=== PATIENT | male | born 1930 | race African-American/Black ===

== ENCOUNTER 2018-01-26 10:16 | Inpatient (IN) | payer OTHER ==
[2018-01-26] MEDS ORDERED: SODIUM CHLORIDE 1,000 ML IV SCH (10:30)
--- NOTE | 2018-01-26 10:31 | PDOC ---
Attending Attestation - Medical Decision Making 01/26/18 11:[address] Villa's office, she is with a patient, awaiting call back. <Sarah Thompson - Last Filed: 01/26/18 11:46> - Resident Resident Name: Jose A Craft - ED Attending Attestation I have performed the following: I have examined & evaluated the patient, The case was reviewed & discussed with the resident, I agree w/resident's findings & plan, Exceptions are as noted - HPI HPI: 01/26/18 10:31 88y M hx of dm, htn, hl glaucoma, ESRD (MWF) pafib (2012, off ac currently), GIB deu to diverticular dz (apr 2016), prostate ca s/p prostectomy 94, presents with AMS while at [facility] - per [facility] records, at 9:35, the patient was noted to have seizure like activity, was cyanotic, couldnt talk, bp at 180/65, HR 95 while on dialysis, BGM by dialysis center was 164, EMS was called, arrived at approx 10am, found the pt to be agitated, was given 5 of versed, per EMS, bp was hpertensive to >200sbp (per ems, he was agitated at this point), BGM 125 by EMS. Upon arrival pts bp was 182/77, HR approx 120, pt was confused, non responding appropriatelyto questions (not at his baseline, per he is typically AOx3), also seem to have mild weakness of his RUE and RLE. Code willett was initiated a few minutes after arrival (approx 10:25). blood work was obtrained and Pt was rushed to CT. Per the , the pt had an episode of vomiting last night, but otherwise did not have any complaints of headache,a bd pain, cp. per the who saw the pt around 8:30 and gave him some crackers at dialysis, he was at baseline. exam upon arival: GENERAL: The patient is lethargic/cnofused, does not respond to questions HEAD: Normocephalic, atraumatic. EYES: pupils 3mm and sluggish response on L eye, glaucoma, ptergium on R eye ENT: Normal voice, dry mucous membranes. NECK: Normal range of motion, supple LUNGS: Breath sounds equal, clear to auscultation bilaterally. No wheezes, no rhonchi, no rales. HEART: tachycardic ABDOMEN: Soft, nontender,No guarding, no rebound. . No CVA tenderness EXTREMITIES: Normal range of motion, no edema, graft on NEUROLOGICAL: withdraws to pain on LUE/LLE, minimal movement of RUE/RLE PSYCH: unabl eto asess SKIN: Warm, Dry, - Physicial Exam PE: 02/01/18 01:18 see above - Critical Care Time Total Critical Care Time: 45 Critical Care Statement: The care of this patient involved high complexity decision making to prevent further life threatening deterioration of the patient 's condition and/or to evaluate & treat vital organ system(s) failure or risk of failure. - Medical Decision Making 01/26/18 10:[address] Sepulveda ([phone]) - neurology management consultant - notes that relative containdication of age, seizure, was given versed will reassess to see i there is improvement and will get back to him 01/26/18 11:[address] is negative 01/26/18 11:26 Pts NIHSS is 4, seems there is an improvement from presentation. pt moving his R arm against gravity which is an improvement from arrival and even approx 10 minutes ago will defer TPA due to improving sypmtms, relative contraindication due to his age, initial seizure activity discussed with who understands our movement and is amenable to our plan 01/26/18 15:32 hx of htn, prostate ca (89 sp prostectom), hl, dm, esrd iliestomy s/p reversal pafib (2012) off AC currently recent GIB due to diverticular dz (04/2016) echo a few years ago was wnl cards: Dr. Murillo <Heber Dorsey - Last Filed: 02/01/18 01:18> Heart Score/ECG Review - ECG Impressions Comment:: 01/26/18 11:28 Twelve-lead EKG was performed and reviewed by me. There is normal sinus rhythm with a normal rate. Rate of 99 The axis is normal. qTC interval o [id number] NoPrior EKGs for comparison <Heber Dorsey - Last Filed: 02/01/18 01:18> NIH Stroke Scale - Last Known Well Date/Time & Onset Date Last Known Well: 01/26/18 Time Last Known Well: 09:35 - Initial Evaluation Level of consciousness: Alert Ask patient the month and their age: Answers one correctly Ask patient to open & close eyes; make fist and let go: Obeys both correctly Best gaze (horizontal eye movement): Normal Visual field testing: No visual field loss Facial paresis (Show teeth/raise eyebrows/close eyes tight): Normal symmetrical movement Motor Function: Left Arm: Normal Motor Function: Right Arm: Some effort against gravity Motor Function: Left Leg: Normal (extends leg 30 degrees for 5 seconds without drift) Motor Function: Right Leg: Normal (extends leg 30 degrees for 5 seconds without drift) Limb Ataxia: No ataxia Sensory(Use pinprick test arms,legs,trunk,face/side to side): Mild to moderate decrease in sensation Best language (Describe picture, name items, read sentences): No Aphasia Dysarthria (read several words): Normal articulation Extinction and Inattention: No abnormality - Total Score NIH Stroke Scale Score: 4 <Heber Dorsey - Last Filed: 02/01/18 01:18> tPA Exclusion Checklist 0-3hr - Time Elapsed Date last known well: 01/26/18 Time last known well: 09:35 Elaspsed time: 5 Day(s) and 15 Hour(s) and 43 Minutes - Thrombolytic Therapy Candidate Is the patient eligible for Thrombolytic Therapy?: No - Exclusion Criteria 0-3hr SBP greater than 185 or DBP greater than 110mmHg despite tx: Yes Recent IC/spinal surgery,head trauma or stroke w/in last 3mo: No Hx of previous IC hemorrhage, IC neoplasm, AVM or aneurysm: No Active internal bleeding: No Blding diathesis(low plt ct, inc PTT,INR>1.7 or use of NOAC): No Symptoms suggest subarachnoid hemorrhage: No CT demonstrates multilobar infarct(>1/3 cerebral hemiphere): No Arterial puncture at noncompressible site in previous 7 days: No Blood glucose concentration less than 50mg/dL (2.7mmol/L): No - Relative Exclusion Criteria 0-3h Life expectancy <1yr/severe co-morbid illness/[employer]NAGING [employer]SP[employer]ER on admit: No : No Patient/family refused: No Rapid improvement: Yes Stroke severity too mild: Yes Recent acute FL (w/in previous 3 months): No Seizure at onset with postictal residual neuro impairments: Yes Major surgery or serious trauma w/in previous 14 days: No Recent GI or hemorrhage (w/in previous 21 days): No - Ineligibility reason(s) Reasons No tPA given: See reason(s) noted above <Heber Dorsey - Last Filed: 02/01/18 01:18> Attestations - Attestations 01/26/18 11:46 Documentation prepared by Sarah Thompson, acting as medical biller for Heber Dorsey MD. <Sarah Thompson - Last Filed: 01/26/18 11:46>
[2018-01-26 11:05] LABS: BASO % 0.2 % (0-2.0); HEMATOCRIT 37.7 % (35.4-49); HEMOGLOBIN 12.5 GM/dL (11.7-16.9); INR 0.93 (0.83-1.09); MCH 33.6 pg (25.7-33.7); MCHC 33.2 g/dl (32.0-35.9); MEAN CELL VOLUME 101.2 fl (80-96); MONO % 6.4 % (3.8-10.2); NEUT % 71.4 % (42.8-82.8); PLATELET COUNT 205 K/MM3 (134-434); RBC 3.73 M/mm3 (4.00-5.60); RDW 17.1 % (11.9-15.9); WHITE BLOOD COUNT 8.4 K/mm3 (4.0-10.0)
[2018-01-26 11:06] LABS: ALBUMIN 3.2 g/dl (3.4-5.0); ALK PHOS 103 U/L (45-117); ANION GAP 15 MMOL/L (8-16); BILIRUBIN,TOTAL 0.7 mg/dL (0.2-1); BLOOD UREA NITROGEN 39 mg/dL (7-18); CALCIUM 8.7 mg/dL (8.5-10.1); CHLORIDE 96 mmol/L (98-107); CHOLESTEROL 129 mg/dL (50-200); CO2 25 mmol/L (21-32); GLUCOSE,RANDOM 212 mg/dL (74-106); HDL CHOLESTEROL 53 mg/dL (40-60); POTASSIUM 3.6 mmol/L (3.5-5.1); SGOT/AST 37 U/L (15-37); SGPT/ALT 45 U/L (13-61); SODIUM 136 mmol/L (136-145); TOT PROT 7.2 g/dl (6.4-8.2); TRIGLYCERIDES 137 mg/dL (0-150)
[2018-01-26] MEDS ORDERED: ASPIRIN 81 MG CHEWABLE TABLETS PO ONE (11:17)
[2018-01-26] MEDS ORDERED: ASPIRIN 81 MG CHEWABLE TABLETS ONE (11:23)
--- NOTE | 2018-01-26 12:02 | PDOC ---
History of Present Illness - General Chief Complaint: CVA/TIA Stated Complaint: ALTERED MENTAL STATUS Time Seen by Provider: 01/26/18 10:20 History Source: Patient, Spouse Exam Limitations: Clinical Condition - History of Present Illness Initial Comments: 88 y/o male presenting to [facility] ER via ALS ambulance from [facility] with an altered mental status. Transfer paperwork from [facility], At 9:35 AM patient noted a seizure like activity, cyanosed, cant talk, BP 180/65 P-95 while on hemodialysis. Blood glucose 164. Clinical Account Manager reports pt was found to be agitated and/or combative. 5mg Versed was administered. Found to be hypertensive to greater than 200 systolic. Believed to have received approx. 1 hour of dialysis. On arrival in the ED, the pt was found to be alert but confused; he did not verbalize a chief complaint. was present at bedside in ER. She reports she was at [facility] but did not witness the episode. Pt was alert and oriented x4 this morning. He walked down the stairs at home with obvious change in ambulation. She denies h/o of similar episodes. PCP: Unknown at [facility] Agriculture Scientist: Dr. Young Medical Hx: Anemia in CKD ESRD on HD (M, W, F) T2DM, insulin dependent Inflammatory Liver Disease, Unspecified Past History - Past Medical History Allergies/Adverse Reactions: Allergies Allergy/AdvReac Type Severity Reaction Status Date / Time Penicillins Allergy Verified 01/26/18 10:46 Home Medications: Ambulatory Orders Amlodipine Besylate [Norvasc -] 10 mg PO DAILY 01/26/18 B Complex W-C No.20/Folic Acid [[place] Caps Softgel] 1 mg PO DAILY 01/26/18 Docusate Sodium 300 mg PO DAILY 01/26/18 Insulin (Novolog) [Novolog Vial] 4 units SQ TID PRN 01/26/18 Latanoprost 0.005% Eye Drops [Xalatan 0.005% Eye Drops -] 1 drop OP ASDIR Metoprolol Succinate [Toprol Xl] 12.5 mg PO ASDIR 01/26/18 Sevelamer Carbonate 1,600 mg PO TID 01/26/18 Anemia: Yes (iron deficiency) COPD: No Diabetes: Yes Disorders: Yes (ESRD) HTN: Yes Hypercholesterolemia: Yes Seizures: Yes (hyperparathyroidism) - Suicide/Smoking/Psychosocial Hx Smoking History: Unknown if ever smoked Have you smoked in the past 12 months: No Information on smoking cessation initiated: No Hx Alcohol Use: No Drug/Substance Use Hx: No Substance Use Type: None Review of Systems - Review of Systems Able to Perform ROS?: No Comments:: Pt altered on arrival. Unable to answer questions. *Physical Exam - Vital Signs Last Vital Signs Temp Pulse Resp BP Pulse Ox 99.3 F 85 18 110/43 L 98 01/26/18 10:50 01/26/18 11:41 01/26/18 11:41 01/26/18 11:41 01/26/18 11:41 - Physical Exam Comments: Constitutional: Well-developed, non-toxic obese male found alert and oriented to person only. Clean bandages covering dialysis fistula on left arm. Speech was non-labored. HEENT: Normocephalic. No obvious external signs of trauma. Pupils 3mm and fixed bilaterally. Unable to asses EOMI. Sclerae white. Conjunctiva moist and not injected. Neck is supple, trachea is midline. Cardiovascular: Tachycardic rate and regular rhythm. No murmur, rubs, clicks, or gallops. Peripheral pulses: Radial pulses full. Respiratory: Breathing unlabored. Equal chest rise and fall. Clear to auscultation bilaterally. No stridor, no wheezing, no rhonchi. Gastrointestinal: abdomen is soft, non-tender, non-distended. Neuro: Alert but disoriented. Moving upper left, lower left, and lower right extremities spontaneously, not moving upper right extremity. Unable to assess cranial nerves or strength as pt will not follow commands. Skin: Warm, dry, and intact. Critical Care Time/MDM Note - Medical Decision Making Note: *Reviewed vital signs, nursing notes, and prior visit documentation (if available). 88 y/o presenting with altered mental status and possible right sided weakness from dialysis. Difficult to assess neurologic status as pt will not follow commands. Concern for acute CVA versus seizure with Todds paralysis. Altered mental status is possibly related to Versed administration. Activated code silver protocol and order set. POC Glucose 212. EKG: Sinus rhythm with a ventricular rate of 99 bpm. Normal axis. Prolonged QTc at 518. No ST segment elevation or depression. No hyperacute T waves or pathologic Q waves. Head CT without contrast: moderate volume loss without gross evidence of acute intracranial pathology. CBC unremarkable for anemia or leukocytosis. CMP unremarkable for electrolyte derangement. LFTs not elevated. Troponin not elevated. Low suspicion for ACS. PT/INT within normal range. Attending consulted with Dr. Sepulveda, covering neurologist for Dr. Pitts. TPA therapy considered however therapy is relatively contraindicated by pts age and comorbidities. Attending discussed risks and benefits with , who agreed to not administered TPA. Given ASA. 11:40 On re-exam, pt found to be alert and more oriented. States he cannot move his right arm; demonstrates moving all digits of right hand but unable to move arm. Note BP continues to trend downward. Will monitor for now. 11:45 Telephone page sent to Dr. Villa for admission. Awaiting call back. 11:[address] Villa. Discussed possibility of ICU admission, however pt does not appear to meet criteria at this time. Will monitor for acute changes and place admission order for stroke protocol admission. 12:[address] Sepulveda. Recommends placing pt on Valproic Acid 500mg BID with extra 500mg after receiving dialysis. Ordered placed for single loading dose in the department. Discharge Disposition - Diagnosis ESRD (end stage renal disease) on dialysis Cerebrovascular accident (CVA) Qualifiers: CVA mechanism: unspecified Qualified Code(s): I63.9 - Cerebral infarction, unspecified - Discharge Dispostion Condition at time of disposition: Stable Decision to Admit order: Yes - Referrals Referrals: Yessy Carson MD [Primary Care Provider] - - Patient Instructions - Post Discharge Activity
[2018-01-26] MEDS ORDERED: VALPROATE SODIUM 500 MG/5 ML VIAL IVPB ONE (12:27)
[2018-01-26] MEDS ORDERED: ACETAMINOPHEN 1000 MG/100 ML VIAL (NON FORMULARY) IVPB ONE (12:28)
--- NOTE | 2018-01-26 12:37 | CON.NEURO ---
Consult Consult Specialty:: neurology Reason for Consultation:: seizure - History of Present Illness History of Present Illness: 88y M hx of dm, htn, glaucoma, ESRD (MWF) presents with AMS while at [facility] - per d[facility] records, at 9:35, the patient was noted to have seizure like activity, was cyanotic, couldnt talk, bp at 180/65, HR 95 while on dialysis, BGM by dialysis center was 164, EMS was called, arrived at approx 10am, found the pt to be agitated, was given 5 of versed, per EMS, bp was hpertensive to > 200sbp (per ems, he was agitated at this point), BGM 125 by EMS. Upon arrival pts bp was 182/77, HR approx 120, pt was confused, non responding appropriatelyto questions (not at his baseline, per he is typically AOx3), also seem to have mild weakness of his RUE and RLE. Code willett was initiated a few minutes after arrival (approx 10:25). I saw and examined the pt at the bedside; he c/o R UE -arm pain and feels weak on R UE ; he has mild dysarthria and mild R face droop which is chronic per at the bedside. He is mildly confused but no weakness in the other limbs ; no h/o seizure in the past ; CTH - for acute events. - Alcohol/Substance Use Hx Alcohol Use: No - Smoking History Smoking history: Unknown if ever smoked Have you smoked in the past 12 months: No Home Medications - Allergies Allergies/Adverse Reactions: Allergies Allergy/AdvReac Type Severity Reaction Status Date / Time Penicillins Allergy Verified 01/26/18 10:46 - Home Medications Home Medications: Ambulatory Orders Amlodipine Besylate [Norvasc -] 10 mg PO DAILY 01/26/18 B Complex W-C No.20/Folic Acid [[place] Caps Softgel] 1 mg PO DAILY 01/26/18 Docusate Sodium 300 mg PO DAILY 01/26/18 Insulin (Novolog) [Novolog Vial] 4 units SQ TID PRN 01/26/18 Latanoprost 0.005% Eye Drops [Xalatan 0.005% Eye Drops -] 1 drop OP ASDIR Metoprolol Succinate [Toprol Xl] 12.5 mg PO ASDIR 01/26/18 Sevelamer Carbonate 1,600 mg PO TID 01/26/18 Review of Systems - Review of Systems Constitutional: reports: Lethargy Physical Exam-Neuro Vital Signs: Vital Signs Temperature 99.3 F 01/26/18 10:50 Pulse Rate 88 01/26/18 12:22 Respiratory Rate 20 01/26/18 12:22 Blood Pressure 127/59 L 01/26/18 12:22 O2 Sat by Pulse Oximetry (%) 100 01/26/18 12:22 Constitutional: Yes: Well Nourished Neck: Yes: Supple Cardiovascular: Yes: Regular Rate and Rhythm Respiratory: Yes: CTA Bilaterally Musculoskeletal: Yes: Other (R shoulder and R arm pain) Edema: No Psychiatric: Yes: WNL Labs: CBC, BMP 01/26/18 10:22 01/26/18 10:22 INR, PTT INR 0.93 (0.83-1.09) 01/26/18 10:22 - Neuro Exam Level Of Consciousness: Yes: Oriented to Person Eyes: Yes: PERRLA Speech: Slurred (at baseline) Cranial Nerves II-XII Intact: Yes (Mild R face droop - at baseline.) Babinski: Absent Response to light touch: Normal Coordination: Normal: Finger to Nose Motor Strength: 3/5: Right Arm (No drift in the L U and b/l LEs - R UE limited due to pain .) Imaging - Results Cat Scan: Image Reviewed (No acute events) Problem List - Problems (1) Cerebrovascular accident (CVA) Code(s): I63.9 - CEREBRAL INFARCTION, UNSPECIFIED Qualifiers: CVA mechanism: unspecified Qualified Code(s): I63.9 - Cerebral infarction, unspecified (2) ESRD (end stage renal disease) on dialysis Code(s): N18.6 - END STAGE RENAL DISEASE; Z99.2 - DEPENDENCE ON RENAL DIALYSIS (3) Seizure Code(s): R56.9 - UNSPECIFIED CONVULSIONS Assessment/Plan 88y M hx of dm, htn, glaucoma, ESRD (MWF) presents with AMS while at [facility] and seizure like activities. He has R side face weakness as baseline per ( has had sx on face in the past) and mild dysarthria b/o not wearing his denture ; c/o R UE pain so not able to assess his R UE motor precisely -he also has received versed in the ambulance so is confused - his NIH score possibly about 4 ; new onset seizure w alan's paralysis vs stroke VS hypertensive encephalopathy - he is not a tPA candidate b/o having seizure , low NIH score , improving his symptoms , and old age . I suggest: Depakote 500 mg bid ( EXTRA 500 MG each jennifer after HD) baby asp STATIN EEG routine MRI/A brain wo Avoid dropping BP quickly -keep SBP 140-170 seizure / fall precautions Carotid u/s ECHO Cardiac w/u B12, RPR, TSH, FA, Homocysteine pt/ot SEIZURE/ FALL precautions Health maintenance per primary team. Thank you. Cristopher Sepulveda MD [phone]
[2018-01-26] MEDS ORDERED: ACETAMINOPHEN INJECTION 100 ML IVPB ONE (12:39)
[2018-01-26] MEDS ORDERED: VALPROATE SODIUM 500 MG/5 ML VIAL ONE (12:39)
--- NOTE | 2018-01-26 18:18 | HP ---
Admitting History and Physical - Primary Care Physician PCP: Justin Villa - Admission History of Present Illness: 88y M hx of dm, htn, hl glaucoma, ESRD (MWF) pafib (2012, off ac currently), GIB deu to diverticular dz (apr 2016), prostate ca s/p prostectomy 94, presents with AMS while at d[facility] - per dialsyis records, at 9:35, the patient was noted to have seizure like activity, was cyanotic, couldnt talk, bp at 180/65, HR 95 while on dialysis, BGM by dialysis center was 164, EMS was called, arrived at approx 10am, found the pt to be agitated, was given 5 of versed, per EMS, bp was hpertensive to >200sbp (per ems, he was agitated at this point), BGM 125 by EMS. Upon arrival pts bp was 182/77, HR approx 120, pt was confused, non responding appropriatelyto questions (not at his baseline, per he is typically AOx3), also seem to have mild weakness of his RUE and RLE. Code willett was initiated a few minutes after arrival (approx 10:25). blood work was obtrained and Pt was rushed to CT. Per the , the pt had an episode of vomiting last night, but otherwise did not have any complaints of headache,a bd pain, cp. per the who saw the pt around 8:30 and gave him some crackers at dialysis, he was at baseline. - Past Medical History Cardiovascular: Yes: HTN, Hyperlipdemia Renal/: Yes: Renal Failure Endocrine: Yes: Diabetes Mellitus - Smoking History Smoking history: Unknown if ever smoked Have you smoked in the past 12 months: No - Alcohol/Substance Use Hx Alcohol Use: No Home Medications - Allergies Allergies/Adverse Reactions: Allergies Allergy/AdvReac Type Severity Reaction Status Date / Time Penicillins Allergy Verified 01/26/18 10:46 - Home Medications Home Medications: Ambulatory Orders Amlodipine Besylate [Norvasc -] 10 mg PO DAILY 01/26/18 B Complex W-C No.20/Folic Acid [[place] Caps Softgel] 1 mg PO DAILY 01/26/18 Docusate Sodium 300 mg PO DAILY 01/26/18 Insulin (Novolog) [Novolog Vial] 4 units SQ TID PRN 01/26/18 Latanoprost 0.005% Eye Drops [Xalatan 0.005% Eye Drops -] 1 drop OP ASDIR Metoprolol Succinate [Toprol Xl] 12.5 mg PO ASDIR 01/26/18 Sevelamer Carbonate 1,600 mg PO TID 01/26/18 Physical Examination Vital Signs: Vital Signs Temperature 99.3 F 01/26/18 10:50 Pulse Rate 88 01/26/18 12:22 Respiratory Rate 20 01/26/18 12:22 Blood Pressure 127/59 L 01/26/18 12:22 O2 Sat by Pulse Oximetry (%) 100 01/26/18 12:22 Constitutional: Yes: No Distress HENT: Yes: Atraumatic Neck: Yes: Supple Cardiovascular: Yes: Regular Rate and Rhythm Respiratory: Yes: CTA Bilaterally Gastrointestinal: Yes: Normal Bowel Sounds Extremities: Yes: WNL Edema: No Peripheral Pulses WNL: Yes Neurological: Yes: Alert, Oriented Labs: CBC, BMP 01/26/18 10:22 01/26/18 10:22 Imaging - Results Cat Scan: Report Reviewed Problem List - Problems (1) HTN (hypertension) Code(s): I10 - ESSENTIAL (PRIMARY) HYPERTENSION (2) HLD (hyperlipidemia) Code(s): E78.5 - HYPERLIPIDEMIA, UNSPECIFIED (3) Diabetes Code(s): E11.9 - TYPE 2 DIABETES MELLITUS WITHOUT COMPLICATIONS (4) Cerebrovascular accident (CVA) Code(s): I63.9 - CEREBRAL INFARCTION, UNSPECIFIED Qualifiers: CVA mechanism: unspecified Qualified Code(s): I63.9 - Cerebral infarction, unspecified (5) ESRD (end stage renal disease) on dialysis Code(s): N18.6 - END STAGE RENAL DISEASE; Z99.2 - DEPENDENCE ON RENAL DIALYSIS (6) Seizure Code(s): R56.9 - UNSPECIFIED CONVULSIONS Assessment/Plan Laboratory Tests 01/26/18 01/26/18 01/26/18 10:22 10:22 10:22 WBC 8.4 RBC 3.73 L Hgb 12.5 Hct 37.7 MCV 101.2 H MCH 33.6 MCHC 33.2 RDW 17.1 H Plt Count 205 MPV 8.0 Absolute Neuts (auto) 6.0 Neutrophils % 71.4 Lymphocytes % 21.0 Monocytes % 6.4 Eosinophils % 1.0 Basophils % 0.2 Nucleated RBC % 0 PT with INR 11.00 INR 0.93 Sodium 136 Potassium 3.6 Chloride 96 L Carbon Dioxide 25 Anion Gap 15 BUN 39 H Creatinine 5.0 H Creat Clearance w eGFR 11.06 POC Glucometer Random Glucose 212 H Calcium 8.7 Total Bilirubin 0.7 AST 37 ALT 45 Alkaline Phosphatase 103 Creatine Kinase 77 Troponin I 0.04 Total Protein 7.2 Albumin 3.2 L Triglycerides 137 Cholesterol 129 Total LDL Cholesterol 65 HDL Cholesterol 53 Blood Type Antibody Screen 01/26/18 01/26/18 10:22 10:22 WBC RBC Hgb Hct MCV MCH MCHC RDW Plt Count MPV Absolute Neuts (auto) Neutrophils % Lymphocytes % Monocytes % Eosinophils % Basophils % Nucleated RBC % PT with INR INR Sodium Potassium Chloride Carbon Dioxide Anion Gap BUN Creatinine Creat Clearance w eGFR POC Glucometer [phone] Random Glucose Calcium Total Bilirubin AST ALT Alkaline Phosphatase Creatine Kinase Troponin I Total Protein Albumin Triglycerides Cholesterol Total LDL Cholesterol HDL Cholesterol Blood Type O POSITIVE Antibody Screen Negative Active Medications Generic Name Dose Route Start Last Admin Trade Name Freq PRN Reason Stop Dose Admin Sodium Chloride 1,000 mls @ 42 mls/hr 01/26/18 10:30 01/26/18 10:55 Normal Saline - IV 42 mls/hr ASDIR MARINO Administration
[2018-01-26] MEDS ORDERED: metoPROLOL SUCCINATE 25 MG TAB.SR.24H (FP) PO SCH (18:30)
[2018-01-26] MEDS: SODIUM CHLORIDE 1,000 ML IV SCH ×2 (18:36→23:21)
[2018-01-26] MEDS: BRIMONIDINE TARTRATE 0.2% OPHTHALMIC 5 ML BOTTLE OU SCH (21:35)
[2018-01-26] MEDS: LATANOPROST 0.005% OPHTH SOLN 2.5ML BOTTLE OU SCH (21:36)
[2018-01-26] MEDS: TIMOLOL 0.5% OPHTHALMIC SOL 5 ML BOTTLE OU SCH (21:36)
[2018-01-26] MEDS: HEPARIN NA (PORCINE) 5,000 UNITS/ML 1ML VIAL SQ SCH (21:46)
[2018-01-26] MEDS ORDERED: HEPARIN NA (PORCINE) 5,000 UNITS/ML 1ML VIAL ONE (21:46)
[2018-01-27] MEDS ORDERED: PT OWN MED DRAWER 7, Y5N ONE ×3 (01:18→21:55)
[2018-01-27] MEDS ORDERED: metoPROLOL SUCCINATE 25 MG TAB.SR.24H (FP) PO SCH (10:00)
--- NOTE | 2018-01-27 10:03 | CONSULT ---
Admitting History and Physical - Primary Care Physician PCP: Justin Villa - Admission History of Present Illness: Per Neurology consult: "88y M hx of dm, htn, glaucoma, ESRD (MWF) presents with AMS while at [facility] and seizure like activities. He has R side face weakness as baseline per ( has had sx on face in the past) and mild dysarthria b/o not wearing his denture; c/o R UE pain so not able to assess his R UE motor precisely -he also has received versed in the ambulance so is confused - his NIH score possibly about 4 ; new onset seizure w alan's paralysis vs stroke VS hypertensive encephalopathy - he is not a tPA candidate b/o having seizure , low NIH score , improving his symptoms , and old age " Pt reports h/o hands shaking periodically. History Source: Patient Limitations to Obtaining History: No Limitations - Past Medical History Cardiovascular: Yes: HTN, Hyperlipdemia Renal/: Yes: Renal Failure Endocrine: Yes: Diabetes Mellitus - Smoking History Smoking history: Former smoker Have you smoked in the past 12 months: No - Alcohol/Substance Use Hx Alcohol Use: No History - Admission Reason For Visit: WEAKNESS FOLLOWING CEREBROVASCULAR ACCIDENT - Diagnostics X-ray: Report Reviewed CT Scan: Report Reviewed - General Mental Status: Alert and Oriented, Awake and Alert, Able to Follow Commands Attention: Intact Ability to Follow Directions: Excellent Head/Neck Control: WFL - Hearing Hearing: Normal Hearing Aide: No With Patient: No Speech Evaluation - Communication Primary Language: SPANISH Communication: Yes: Within Normal Limits, Dysarthria (slight.) - Speech Production Able to Make Needs Known: Yes: WNL Intelligibility: Yes: WNL - Speech Characteristics Voice Loudness: Normal Voice Pitch: Yes: Normal Voice Phonatory-based Quality: Yes: Normal Speech Pattern: Normal Speech Clarity: < 100% Nasal Resonance: Normal Articulation: Yes: Imprecise (slight) Rate of Speech: Intact - Language/Auditory Comprehension Follows: Yes: 2 Stage Simple Commands - Language/Verbal Expression Able to Respond to Simple Queries: Yes: WNL Able to Communicate Wants and Needs: Yes: WNL Functional Communication Status: Yes: WNL - Memory/Perception [facility] Memory: Yes: WNL Short Term Memory: Yes: WNL - Swallow Evaluation/Bedside Assessment Current Nutritional Intake: Regular, Thin Liquids Oral Secretions: Yes: WFL Dentition: Yes: Edentulous (upper), Missing Teeth (lower, only amnterior dentition. Gums hard. Does not wear his dentures. Eats reg food at home) Facial Symmetry at Rest: Facial Droop Right (slight) Facial Symmetry on Retraction: Symmetrical Facial Movement: Controlled Against Resistance Opening: Normal Against Resistance Closing: Normal Pucker Lips: Normal Smile: Normal Lingual Movement: Normal, Symmetric Lingual Speed of Movement: Normal Lingual Movement Strgth Against Opposition: Normal Lingual Movement Characteristics: Normal Laryngeal Elevation: WFL Laryngeal Movement: Able to Palpate Rate of Intake: WFL Bolus Size: WFL Labial Seal: WFL Chewing: WFL Oral Prep Time: WFL A-P Transit: WFL Pocketing: None Timing of Swallow: WFL Coughing/Throat Clear: No Change in Voice: No Recommendations - Speech Evaluation, Impression/Plan Impression: Speech production-slight Dysarthria with good intelligibility, language, cognition, swallowing intact - Dysphagia Impressions/Plan Swallowing Skills: [facility] Dysphagia Impressions: No Impairment *Silent aspiration: cannot be R/O at bedside - Recommendations Diet Consistency: Regular (menu selection for softer items) Liquids: Thin Liquids
[2018-01-27] MEDS: ACETAMINOPHEN 325 MG TABLET (FP) PO PRN (10:41)
[2018-01-27] MEDS: SEVELAMER CARBONATE 800 MG TAB (FP) PO SCH ×4 (10:44→17:55)
[2018-01-27] MEDS: amLODIPine BESYLATE 10 MG TABLET (FP) PO SCH (10:44)
--- NOTE | 2018-01-27 10:45 | EKG ---
Test Reason : Blood Pressure : / mmHG Vent. Rate : 099 BPM Atrial Rate : 099 BPM P-R Int : 152 ms QRS Dur : 078 ms QT Int : 404 ms P-R-T Axes : 047 025 067 degrees QTc Int : 518 ms NORMAL SINUS RHYTHM PROLONGED QT ABNORMAL ECG NO PREVIOUS ECGS AVAILABLE Confirmed by Rafa Murillo MD ([id number]) on 01/27/2018 10:45:11 AM Referred By: Confirmed By:Rafa Murillo MD
[2018-01-27] MEDS: BRIMONIDINE TARTRATE 0.2% OPHTHALMIC 5 ML BOTTLE OU SCH ×2 (10:46→22:01)
[2018-01-27] MEDS: TIMOLOL 0.5% OPHTHALMIC SOL 5 ML BOTTLE OU SCH ×2 (10:46→22:01)
[2018-01-27] MEDS: HEPARIN NA (PORCINE) 5,000 UNITS/ML 1ML VIAL SQ SCH ×2 (10:52→22:02)
[2018-01-27 12:58] LABS: URINE APPEARANCE CLEAR; URINE BILIRUBIN NEGATIVE (<2.0 mg/dL); URINE COLOR STRAW; URINE GLUCOSE (UA) 3+ (NEGATIVE); URINE KETONE NEGATIVE (NEGATIVE); URINE LEUK ESTERASE NEGATIVE (NEGATIVE); URINE NITRITE NEGATIVE (NEGATIVE); URINE PROTEIN 1+ (NEGATIVE); URINE UROBILINOGEN NEGATIVE mg/dL (0.2-1.0)
[2018-01-27 13:06] LABS: EPI CELLS RARE /HPF (FEW); URINE MUCUS RARE
--- NOTE | 2018-01-27 22:42 | PN ---
Progress Note, Physician - Current Medication List Current Medications: Active Medications Acetaminophen (Tylenol -) 650 mg PO Q6H PRN PRN Reason: FEVER Last Admin: 01/27/18 10:41 Dose: 650 mg Amlodipine Besylate (Norvasc -) 10 mg PO DAILY [facility] Last Admin: 01/27/18 10:44 Dose: 10 mg Brimonidine Tartrate (Alphagan 0.2% -) 1 drop OU BID [facility] Last Admin: 01/27/18 22:01 Dose: 1 drop Dorzolamide HCl (Trusopt 2%) 1 drop OD TID [facility] Heparin Sodium (Porcine) (Heparin -) 5,000 unit SQ BID [facility] Last Admin: 01/27/18 22:02 Dose: 5,000 unit Insulin Detemir (Levemir Vial) 8 units SQ HS [facility] Latanoprost (Xalatan 0.005% Eye Drops -) 1 drop OU HS [facility] Last Admin: 01/26/18 21:36 Dose: 1 drop Metoprolol Succinate (Toprol Xl -) 12.5 mg PO DAILY [facility] Last Admin: 01/27/18 10:47 Dose: 12.5 mg Sevelamer Carbonate (Renvela -) 1,600 mg PO TIDCM [facility] Last Admin: 01/27/18 17:55 Dose: 1,600 mg Timolol Maleate (Timoptic 0.5%) 1 drop OU BID [facility] Last Admin: 01/27/18 22:01 Dose: 1 drop - Objective Vital Signs: Vital Signs Temperature 98.0 F 01/27/18 18:00 Pulse Rate 91 H 01/27/18 18:00 Respiratory Rate 18 01/27/18 18:00 Blood Pressure 197/101 H 01/27/18 18:00 O2 Sat by Pulse Oximetry (%) 98 01/27/18 09:00 Labs: CBC, BMP 01/26/18 10:22 01/26/18 10:22 INR, PTT INR 0.93 (0.83-1.09) 01/26/18 10:22 Problem List - Problems (1) Cerebrovascular accident (CVA) Code(s): I63.9 - CEREBRAL INFARCTION, UNSPECIFIED Qualifiers: CVA mechanism: unspecified Qualified Code(s): I63.9 - Cerebral infarction, unspecified (2) Diabetes Code(s): E11.9 - TYPE 2 DIABETES MELLITUS WITHOUT COMPLICATIONS (3) ESRD (end stage renal disease) on dialysis Code(s): N18.6 - END STAGE RENAL DISEASE; Z99.2 - DEPENDENCE ON RENAL DIALYSIS (4) HLD (hyperlipidemia) Code(s): E78.5 - HYPERLIPIDEMIA, UNSPECIFIED (5) HTN (hypertension) Code(s): I10 - ESSENTIAL (PRIMARY) HYPERTENSION (6) Seizure Code(s): R56.9 - UNSPECIFIED CONVULSIONS
[2018-01-27] MEDS: LATANOPROST 0.005% OPHTH SOLN 2.5ML BOTTLE OU SCH ×2 (22:44→23:22)
[2018-01-27] MEDS: DORZOLAMIDE 2% HCL OPHTHALMIC SOLUTION 10 ML BOTTLE OD SCH (22:44)
[2018-01-27] MEDS: INSULIN (LEVEMIR) 100 UNITS/ML UNITS SQ SCH (22:44)
[2018-01-28] MEDS ORDERED: PT OWN MED DRAWER 7, Y5N ONE (04:58)
[2018-01-28] MEDS: DORZOLAMIDE 2% HCL OPHTHALMIC SOLUTION 10 ML BOTTLE OD SCH ×3 (05:08→22:20)
[2018-01-28] MEDS: metoPROLOL SUCCINATE 25 MG TAB.SR.24H (FP) PO SCH (06:39)
[2018-01-28] MEDS: SEVELAMER CARBONATE 800 MG TAB (FP) PO SCH ×3 (08:37→20:18)
[2018-01-28] MEDS: amLODIPine BESYLATE 10 MG TABLET (FP) PO SCH (10:26)
[2018-01-28] MEDS: HEPARIN NA (PORCINE) 5,000 UNITS/ML 1ML VIAL SQ SCH ×2 (10:27→22:21)
[2018-01-28] MEDS: TIMOLOL 0.5% OPHTHALMIC SOL 5 ML BOTTLE OU SCH ×2 (10:27→22:20)
[2018-01-28] MEDS: BRIMONIDINE TARTRATE 0.2% OPHTHALMIC 5 ML BOTTLE OU SCH ×2 (10:27→22:20)
--- NOTE | 2018-01-28 11:06 | PN ---
Progress Note, Physician History of Present Illness: right arm shoulder pain continues MRI BRAIN IMPRESSION: Moderate atrophy and mild periventricular chronic microvascular ischemic disease changes without evidence of acute intracranial pathology. Doppler (-) - Current Medication List Current Medications: Active Medications Acetaminophen (Tylenol -) 650 mg PO Q6H PRN PRN Reason: FEVER Last Admin: 01/27/18 10:41 Dose: 650 mg Amlodipine Besylate (Norvasc -) 10 mg PO DAILY [facility] Last Admin: 01/28/18 10:26 Dose: 10 mg Brimonidine Tartrate (Alphagan 0.2% -) 1 drop OU BID [facility] Last Admin: 01/28/18 10:27 Dose: 1 drop Dorzolamide HCl (Trusopt 2%) 1 drop OD TID [facility] Last Admin: 01/28/18 05:08 Dose: 1 drop Heparin Sodium (Porcine) (Heparin -) 5,000 unit SQ BID [facility] Last Admin: 01/28/18 10:27 Dose: 5,000 unit Insulin Detemir (Levemir Vial) 8 units SQ HS [facility] Last Admin: 01/27/18 22:44 Dose: 8 units Latanoprost (Xalatan 0.005% Eye Drops -) 1 drop OU HS [facility] Last Admin: 01/27/18 23:22 Dose: 1 drop Metoprolol Succinate (Toprol Xl -) 12.5 mg PO DAILY [facility] Last Admin: 01/28/18 06:39 Dose: 12.5 mg Sevelamer Carbonate (Renvela -) 1,600 mg PO TIDCM [facility] Last Admin: 01/28/18 08:37 Dose: 1,600 mg Timolol Maleate (Timoptic 0.5%) 1 drop OU BID [facility] Last Admin: 01/28/18 10:27 Dose: 1 drop - Objective Vital Signs: Vital Signs Temperature 98.2 F 01/28/18 10:21 Pulse Rate 87 01/28/18 10:21 Respiratory Rate 18 01/28/18 10:21 Blood Pressure 192/95 H 01/28/18 10:21 O2 Sat by Pulse Oximetry (%) 95 01/27/18 21:00 Constitutional: Yes: Well Nourished (awake, mild right facial, motor--pain limited RUE weakness , LE distally 5/5) Labs: CBC, BMP 01/26/18 10:22 01/26/18 10:22 INR, PTT INR 0.93 (0.83-1.09) 01/26/18 10:22 Problem List - Problems (1) Right shoulder injury Code(s): S49.91XA - UNSP INJURY OF RIGHT SHOULDER AND UPPER ARM, INIT ENCNTR (2) ESRD (end stage renal disease) on dialysis Code(s): N18.6 - END STAGE RENAL DISEASE; Z99.2 - DEPENDENCE ON RENAL DIALYSIS (3) Seizure Code(s): R56.9 - UNSPECIFIED CONVULSIONS Assessment/Plan 88y M hx of dm, htn, hl glaucoma, ESRD (MWF) pafib (2012, off ac currently), GIB deu to diverticular dz (apr 2016), prostate ca s/p prostectomy 94, presents with AMS while at dialsyis - per dials[facility] records, at 9:35, the patient was noted to have seizure like activity, was cyanotic, couldnt talk, bp at 180/65, HR 95 while on dialysis, BGM by dialysis center was 164, EMS was called, arrived at approx 10am, found the pt to be agitated, was given 5 of versed, per EMS, bp was hpertensive to >200sbp (per ems, he was agitated at this point), BGM 125 by EMS. Upon arrival pts bp was 182/77, HR approx 120, pt was confused, non responding appropriatelyto questions (not at his baseline, per he is typically AOx3), also seem to have mild weakness of his RUE and RLE. Code willett was initiated a few minutes after arrival (approx 10:25). AP : no evidence of stroke, doubt seziure transient hypertesnive encephalopathy ---doing better cont ASA right arm weakness appaers to be orthopedic related--FU ORTHO and XRAY RENAL FU for dialysis coordination neuro sign off DR RABAGO
--- NOTE | 2018-01-28 11:37 | PN ---
Progress Note, NOCTURNIST PHYSICIAN - Note Progress Note: On reg, Renal diet, thin liquids with good tolerance and appetite. Selected Entries 01/27/18 01/27/18 01/27/18 10:19 14:02 19:57 Breakfast 100% Lunch 75% Supper 75% Temperature 01/28/18 01/28/18 01/28/18 02:00 06:00 10:10 Breakfast 100% Lunch Supper Temperature 98.4 F 98.2 F 01/28/18 10:21 Breakfast Lunch Supper Temperature 98.2 F Laboratory Tests 01/26/18 10:22 WBC 8.4 MRI noted. Pt able to chew solids well without dentures. Speech production at baseline per pt's
[2018-01-28] MEDS: ASPIRIN COATED 81 MG TABLET.EC PO SCH (12:15)
[2018-01-28] MEDS: INSULIN SLIDING SCALE (NOVOLOG) 1 VIAL SQ SCH ×3 (12:15→22:26)
[2018-01-28 13:28] VITALS: BMI 21.5
--- NOTE | 2018-01-28 13:28 | CON.NEP ---
Consult Consult Specialty:: NEPHROLOGY Referred by:: DR MOSQUEDA Reason for Consultation:: ESRD - History of Present Illness Chief Complaint: 88 WITH MS CHANGE ON THE MACHINE AT THE OUT PT UNIT MON 01/26 History of Present Illness: ADMITTED WITH MS CHANGE POSSIBLE SEIZURE BP WAS HIGH AT THAT TIME REJI MRI NOTED ALL NOTES REVIEWED - History Source History Provided By: Family Member, Medical Record - Past Medical History Cardio/Vascular: Yes: HTN, Hyperlipdemia Renal/: Yes: Renal Failure Endocrine: Yes: Diabetes Mellitus - Past Surgical History Past Surgical History: Yes: AV Fistula/Graft - Alcohol/Substance Use Hx Alcohol Use: No - Smoking History Smoking history: Former smoker Have you smoked in the past 12 months: No - Social History Usual Living Arrangement: With Spouse Home Medications - Allergies Allergies/Adverse Reactions: Allergies Allergy/AdvReac Type Severity Reaction Status Date / Time Penicillins Allergy Verified 01/26/18 10:46 - Home Medications Home Medications: Ambulatory Orders Amlodipine Besylate 10 mg PO DAILY 01/26/18 B Complex W-C No.20/Folic Acid [[place] Caps Softgel] 1 mg PO DAILY 01/26/18 Brimonidine Tartrate/Timolol [Combigan Eye Drops] 1 drop OD DAILY 01/26/18 Docusate Sodium 300 mg PO DAILY 01/26/18 Dorzolamide HCl/Pf [Dorzolamide 2% Eye Drop] 1 drop OD DAILY 01/26/18 Insulin (Novolog) [Novolog Vial] 4 units SQ TID PRN 01/26/18 Latanoprost 0.005% Eye Drops [Xalatan 0.005% Eye Drops -] 1 drop OP ASDIR Latanoprost/Pf [Latanoprost 0.005% Eye Drop] 1 drop OD DAILY 01/26/18 Metoprolol Succinate [Toprol Xl] 12.5 mg PO ASDIR 01/26/18 Sevelamer Carbonate 1,600 mg PO TID 01/26/18 Review of Systems Unable to obtain ROS, reason: PAIN IN RT ARM Nephrology Consult - Height Height: 6 ft - Weight Weight: 158 lb 12.8 oz - BMI Body Mass Index (BMI): 21.5 - Lab Results CBC,BMP: CBC, BMP 01/26/18 10:22 01/26/18 10:22 Anion Gap: Anion Gap Anion Gap 15 MMOL/L (8-16) 01/26/18 10:22 - Physical Examination Vital Signs: Vital Signs Temperature 98.2 F 01/28/18 10:21 Pulse Rate 87 01/28/18 10:21 Respiratory Rate 18 01/28/18 10:21 Blood Pressure 192/95 H 01/28/18 10:21 O2 Sat by Pulse Oximetry (%) 95 01/27/18 21:00 Access for Hemodialysis: AV Fistula (LEFT) Extremities: Yes: Other (RT ARM TENDERNESS UNABLE TO MOVE) Assessment/Plan 88 WITH DM HTN ESRD BRAIN ATROPHY ON MRI ALL NOTES REVIEWED RULE OUT ORTHO ISSUE WITH RT ARM THEN NEEDS PT NORMALLY WALKS WITH A WALKER HD TODAY 3 HR K2 CA2.5 TARGET 2 KG
--- NOTE | 2018-01-28 15:58 | PN ---
Progress Note (short form) - Note Progress Note: Pt seen and examined. In short he is an 88 year old male patient on dialysis who several days ago had an acute event during dialysis causing him to have a change in mental status. During seizure like activity he was held down via his right upper arm. Since that event he has had right shoulder and upper arm pain.He is getting dialysis now. He does state he is feeling better, less pain. PE RUE is not flaccid, but he is having difficulty lifting it off the bed When stationary he has no pain He has nl sensation He is able to move the right hand, fingers, and thumb, grossly nl He is not able to actively move the right elbow or shoulder. Right hand is mildly swollen, otherwise there are no signs of acute pathology in the entire right arm + mildly tender over the right biceps muscle belly xrays Of the right shoulder show no acute bony pathology, no fractures or dislocations Imp 88 yo M s/p an acute event (?stroke?) during dialysis, now with residual right shoulder and arm pain, and difficulty actively lifting the arm, moving the right shoulder or elbow. Right biceps muscle strain Rec Nothing at this time. Let's observe and see if it continues to improve. Possible P.T. as an out pt
--- NOTE | 2018-01-28 20:26 | PN ---
Progress Note, Physician - Current Medication List Current Medications: Active Medications Acetaminophen (Tylenol -) 650 mg PO Q6H PRN PRN Reason: FEVER Last Admin: 01/27/18 10:41 Dose: 650 mg Amlodipine Besylate (Norvasc -) 10 mg PO DAILY [facility] Last Admin: 01/28/18 10:26 Dose: 10 mg Aspirin (Ecotrin -) 81 mg PO DAILY [facility] Last Admin: 01/28/18 12:15 Dose: 81 mg Brimonidine Tartrate (Alphagan 0.2% -) 1 drop OU BID [facility] Last Admin: 01/28/18 10:27 Dose: 1 drop Dorzolamide HCl (Trusopt 2%) 1 drop OD TID [facility] Last Admin: 01/28/18 14:11 Dose: 1 drop Heparin Sodium (Porcine) (Heparin -) 5,000 unit SQ BID [facility] Last Admin: 01/28/18 10:27 Dose: 5,000 unit Insulin Aspart (Novolog Vial Sliding Scale -) 1 vial SQ [facility]; Protocol Last Admin: 01/28/18 19:03 Dose: Not Given Insulin Detemir (Levemir Vial) 8 units SQ [facility] Last Admin: 01/27/18 22:44 Dose: 8 units Latanoprost (Xalatan 0.005% Eye Drops -) 1 drop OU [facility] Last Admin: 01/27/18 23:22 Dose: 1 drop Metoprolol Succinate (Toprol Xl -) 12.5 mg PO DAILY [facility] Last Admin: 01/28/18 06:39 Dose: 12.5 mg Sevelamer Carbonate (Renvela -) 1,600 mg PO TIDCM [facility] Last Admin: 01/28/18 20:18 Dose: 1,600 mg Timolol Maleate (Timoptic 0.5%) 1 drop OU BID [facility] Last Admin: 01/28/18 10:27 Dose: 1 drop - Objective Vital Signs: Vital Signs Temperature 97.6 F 01/28/18 18:00 Pulse Rate 80 01/28/18 19:00 Respiratory Rate 18 01/28/18 19:00 Blood Pressure 135/72 01/28/18 19:00 O2 Sat by Pulse Oximetry (%) 96 01/28/18 10:21 Labs: CBC, BMP 01/26/18 10:22 01/26/18 10:22 INR, PTT INR 0.93 (0.83-1.09) 01/26/18 10:22
[2018-01-28] MEDS: INSULIN (LEVEMIR) 100 UNITS/ML UNITS SQ SCH (22:26)
[2018-01-28] MEDS: LATANOPROST 0.005% OPHTH SOLN 2.5ML BOTTLE OU SCH (23:14)
[2018-01-29] MEDS ORDERED: PT OWN MED DRAWER 7, Y5N ONE ×4 (00:04→21:06)
[2018-01-29] MEDS: DORZOLAMIDE 2% HCL OPHTHALMIC SOLUTION 10 ML BOTTLE OD SCH ×3 (05:54→21:27)
[2018-01-29] MEDS: INSULIN SLIDING SCALE (NOVOLOG) 1 VIAL SQ SCH ×4 (06:01→21:24)
[2018-01-29 08:35] LABS: BASO % 0.3 % (0-2.0); EOS % 1.1 % (0-4.5); HEMATOCRIT 32.4 % (35.4-49); HEMOGLOBIN 11.6 GM/dL (11.7-16.9); LYMPH % 9.3 % (8-40); MCH 37.2 pg (25.7-33.7); MCHC 35.9 g/dl (32.0-35.9); MEAN CELL VOLUME 103.6 fl (80-96); MEAN PLT VOLUME 8.2 fl (7.5-11.1); MONO % 11.8 % (3.8-10.2); NEUT % 77.5 % (42.8-82.8); PLATELET COUNT 168 K/MM3 (134-434); RBC 3.13 M/mm3 (4.00-5.60); RDW 16.8 % (11.9-15.9); WHITE BLOOD COUNT 5.6 K/mm3 (4.0-10.0)
[2018-01-29 08:59] LABS: ALBUMIN 2.3 g/dl (3.4-5.0); ALK PHOS 80 U/L (45-117); ANION GAP 6 MMOL/L (8-16); BILIRUBIN,TOTAL 0.5 mg/dL (0.2-1); BLOOD UREA NITROGEN 47 mg/dL (7-18); CALCIUM 7.8 mg/dL (8.5-10.1); CHLORIDE 106 mmol/L (98-107); CO2 31 mmol/L (21-32); CREATININE 6.7 mg/dL (0.55-1.3); GLUCOSE,RANDOM 114 mg/dL (74-106); SGOT/AST 22 U/L (15-37); SGPT/ALT 30 U/L (13-61); SODIUM 143 mmol/L (136-145); TOT PROT 6.1 g/dl (6.4-8.2)
[2018-01-29] MEDS: TIMOLOL 0.5% OPHTHALMIC SOL 5 ML BOTTLE OU SCH ×2 (09:52→21:22)
[2018-01-29] MEDS: SEVELAMER CARBONATE 800 MG TAB (FP) PO SCH ×3 (09:52→17:28)
[2018-01-29] MEDS: HEPARIN NA (PORCINE) 5,000 UNITS/ML 1ML VIAL SQ SCH ×2 (09:52→21:29)
[2018-01-29] MEDS: ASPIRIN COATED 81 MG TABLET.EC PO SCH (09:52)
[2018-01-29] MEDS: amLODIPine BESYLATE 10 MG TABLET (FP) PO SCH (09:52)
[2018-01-29] MEDS: BRIMONIDINE TARTRATE 0.2% OPHTHALMIC 5 ML BOTTLE OU SCH ×2 (09:53→21:17)
[2018-01-29] MEDS: metoPROLOL SUCCINATE 25 MG TAB.SR.24H (FP) PO SCH (09:54)
--- NOTE | 2018-01-29 17:04 | PN ---
Progress Note, Physician - Current Medication List Current Medications: Active Medications Acetaminophen (Tylenol -) 650 mg PO Q6H PRN PRN Reason: FEVER Last Admin: 01/27/18 10:41 Dose: 650 mg Amlodipine Besylate (Norvasc -) 10 mg PO DAILY [facility] Last Admin: 01/29/18 09:52 Dose: 10 mg Aspirin (Ecotrin -) 81 mg PO DAILY [facility] Last Admin: 01/29/18 09:52 Dose: 81 mg Brimonidine Tartrate (Alphagan 0.2% -) 1 drop OU BID [facility] Last Admin: 01/29/18 09:53 Dose: 1 drop Dorzolamide HCl (Trusopt 2%) 1 drop OD TID [facility] Last Admin: 01/29/18 14:27 Dose: 1 drop Heparin Sodium (Porcine) (Heparin -) 5,000 unit SQ BID [facility] Last Admin: 01/29/18 09:52 Dose: 5,000 unit Insulin Aspart (Novolog Vial Sliding Scale -) 1 vial SQ [facility]; Protocol Last Admin: 01/29/18 12:16 Dose: 4 units Insulin Detemir (Levemir Vial) 8 units SQ [facility] Last Admin: 01/28/18 22:26 Dose: 8 units Latanoprost (Xalatan 0.005% Eye Drops -) 1 drop OU [facility] Last Admin: 01/28/18 23:14 Dose: 1 drop Metoprolol Succinate (Toprol Xl -) 12.5 mg PO DAILY [facility] Last Admin: 01/29/18 09:54 Dose: 12.5 mg Sevelamer Carbonate (Renvela -) 1,600 mg PO TIDCM [facility] Last Admin: 01/29/18 12:00 Dose: 1,600 mg Timolol Maleate (Timoptic 0.5%) 1 drop OU BID [facility] Last Admin: 01/29/18 09:52 Dose: 1 drop - Objective Vital Signs: Vital Signs Temperature 98.2 F 01/29/18 14:18 Pulse Rate 90 01/29/18 14:18 Respiratory Rate 18 01/29/18 14:18 Blood Pressure 133/57 L 01/29/18 14:18 O2 Sat by Pulse Oximetry (%) 100 01/29/18 09:00 Labs: CBC, BMP 01/29/18 06:00 01/29/18 06:00 INR, PTT INR 0.93 (0.83-1.09) 01/26/18 10:22 Problem List - Problems (1) HTN (hypertension) Code(s): I10 - ESSENTIAL (PRIMARY) HYPERTENSION (2) HLD (hyperlipidemia) Code(s): E78.5 - HYPERLIPIDEMIA, UNSPECIFIED (3) Diabetes Code(s): E11.9 - TYPE 2 DIABETES MELLITUS WITHOUT COMPLICATIONS (4) Cerebrovascular accident (CVA) Code(s): I63.9 - CEREBRAL INFARCTION, UNSPECIFIED Qualifiers: CVA mechanism: unspecified Qualified Code(s): I63.9 - Cerebral infarction, unspecified (5) ESRD (end stage renal disease) on dialysis Code(s): N18.6 - END STAGE RENAL DISEASE; Z99.2 - DEPENDENCE ON RENAL DIALYSIS (6) Seizure Code(s): R56.9 - UNSPECIFIED CONVULSIONS
[2018-01-29] MEDS: INSULIN (LEVEMIR) 100 UNITS/ML UNITS SQ SCH (21:27)
[2018-01-29] MEDS: LATANOPROST 0.005% OPHTH SOLN 2.5ML BOTTLE OU SCH (21:31)
[2018-01-29] MEDS: ACETAMINOPHEN 325 MG TABLET (FP) PO PRN (21:35)
[2018-01-30 06:06] LABS: HBSAG SCREEN Negative (Negative); HEP B CORE AB, TOT Negative (Negative)
[2018-01-30] MEDS ORDERED: INSULIN (NOVOLOG) ASPART 100 UNITS/ML 10ML VIAL ONE ×2 (06:18→13:40)
[2018-01-30] MEDS: INSULIN SLIDING SCALE (NOVOLOG) 1 VIAL SQ SCH ×3 (06:28→17:16)
[2018-01-30] MEDS: DORZOLAMIDE 2% HCL OPHTHALMIC SOLUTION 10 ML BOTTLE OD SCH ×2 (06:29→13:47)
[2018-01-30] MEDS ORDERED: PT OWN MED DRAWER 7, Y5N ONE ×2 (06:33→08:51)
[2018-01-30] MEDS: SEVELAMER CARBONATE 800 MG TAB (FP) PO SCH ×3 (09:21→17:16)
[2018-01-30] MEDS: ASPIRIN COATED 81 MG TABLET.EC PO SCH (09:21)
[2018-01-30] MEDS: amLODIPine BESYLATE 10 MG TABLET (FP) PO SCH (09:21)
[2018-01-30] MEDS: metoPROLOL SUCCINATE 25 MG TAB.SR.24H (FP) PO SCH (09:21)
[2018-01-30] MEDS: HEPARIN NA (PORCINE) 5,000 UNITS/ML 1ML VIAL SQ SCH (09:22)
[2018-01-30] MEDS: TIMOLOL 0.5% OPHTHALMIC SOL 5 ML BOTTLE OU SCH (09:22)
[2018-01-30] MEDS: ACETAMINOPHEN 325 MG TABLET (FP) PO PRN (09:25)
[2018-01-30] MEDS: BRIMONIDINE TARTRATE 0.2% OPHTHALMIC 5 ML BOTTLE OU SCH (09:30)
--- NOTE | 2018-01-30 13:22 | DS ---
Physical Examination Vital Signs: Vital Signs Temperature 97.8 F 01/30/18 10:05 Pulse Rate 67 01/30/18 12:40 Respiratory Rate 18 01/30/18 12:40 Blood Pressure 156/66 01/30/18 12:40 O2 Sat by Pulse Oximetry (%) 96 01/30/18 09:00 Labs: CBC, BMP 01/29/18 06:00 01/29/18 06:00 Discharge Summary Reason For Visit: WEAKNESS FOLLOWING CEREBROVASCULAR ACCIDENT Current Active Problems Cerebrovascular accident (CVA) (Acute) Diabetes (Acute) ESRD (end stage renal disease) on dialysis (Acute) HLD (hyperlipidemia) (Acute) HTN (hypertension) (Acute) Right shoulder injury (Acute) Seizure (Acute) Condition: Stable - Instructions Referrals: Yessy Carson MD [Primary Care Provider] - - Home Medications Comprehensive Discharge Medication List: Ambulatory Orders Amlodipine Besylate 10 mg PO DAILY 01/26/18 B Complex W-C No.20/Folic Acid [[place] Caps Softgel] 1 mg PO DAILY 01/26/18 Brimonidine Tartrate/Timolol [Combigan 0.2%-0.5% Eye Drops] 1 drop OD DAILY 05/15 Docusate Sodium 300 mg PO DAILY 01/26/18 Dorzolamide HCl/Pf [Dorzolamide 2% Eye Drop] 1 drop OD DAILY 01/26/18 Insulin (Novolog) [Novolog -] 4 units SQ TID PRN 01/26/18 Latanoprost 0.005% Eye Drops [Xalatan 0.005% Eye Drops -] 1 drop OP ASDIR Latanoprost/Pf [Latanoprost 0.005% Eye Drop] 1 drop OD DAILY 01/26/18 Metoprolol Succinate [Toprol Xl] 12.5 mg PO ASDIR 01/26/18 Sevelamer Carbonate 1,600 mg PO TID 01/26/18 dc home fu pmd next week
[2018-01-30 18:07] VITALS: BP 136/57; PULSE 92; TEMP 98.6
== END 2018-01-30 18:26 | disposition home or self-care (01) | DRG 77 ==
LOC: JER 10:16 → JERBED 12:02 → J4S 22:43
PROVIDERS: ADMIT Internal Medicine; ATTEND Internal Medicine
PROC: 5A1D70Z Performance of Urinary Filtration, Intermittent, Less than 6 Hours Per Day (ICD-10-PCS; 2018-01-28)
PROC: 4A00X4Z Measurement of Central Nervous Electrical Activity, External Approach (ICD-10-PCS; principal; 2018-01-29)
PROC: 5A1D70Z Performance of Urinary Filtration, Intermittent, Less than 6 Hours Per Day (ICD-10-PCS; 2018-01-30)
DX: I67.4 Hypertensive encephalopathy (principal); N18.6 End stage renal disease; I12.0 Hypertensive chronic kidney disease with stage 5 chronic kidney disease or end stage renal disease; E11.22 Type 2 diabetes mellitus with diabetic chronic kidney disease; E78.5 Hyperlipidemia, unspecified; H40.9 Unspecified glaucoma; I48.0 Paroxysmal atrial fibrillation; R56.9 Unspecified convulsions; S46.211A Strain of muscle, fascia and tendon of other parts of biceps, right arm, initial encounter; X58.XXXA Exposure to other specified factors, initial encounter; Z85.46 Personal history of malignant neoplasm of prostate; Z99.2 Dependence on renal dialysis
CPT/HCPCS: 36415; 70450-TC; 70551-TC; 71045-TC-FY; 73030-TC-RT-FY; 80053; 81003; 81015; 82465; 82550; 82962; 83718; 83721; 84478; 84484; 85025; 85610; 86704; 86706; 86708; 86803; 86850; 86900; 86901; 87340; 93005; 93010; 93880-TC; 95816; 97116-GP; 97162-GP; 99285-25; J0131; J1644; J7030